=== PATIENT | male | born 1995 | race African-American/Black ===

== ENCOUNTER 2024-07-13 13:57 | Emergency (ER) | payer SELFPAY ==
[2024-07-13 13:58] VITALS: BP 133/82; PULSE 93; RESP 15; TEMP 36.1; O2SAT 100; BMI 20.7
--- NOTE | 2024-07-13 14:12 | EDS_ITS ---
HPI History of Present Illness HPI Narrative: Patient presents with right shoulder neck pain that has been constant for the past 3 days. Patient states she woke up 2 days ago with pain in his right shoulder and neck. Patient states that has been constant. Patient describes it as sharp. Patient states it is better when he is able to put pressure over his shoulder and neck area. Patient states nothing makes it worse. Patient admits to some tingling going down his right arm into his 3rd and 4th fingers. Patient denies any weakness. Chief Complaint: Upper Extremity Injury Informant: patient Onset/Context/Timing Onset: Days (3) Context: Sudden Onset Timing: Continuous Quality of Pain: Sharp Location: Right shoulder and neck Worsened by: Nothing Relieved by: Applying pressure Associated Symptoms Associated Symptoms: Positive for Parasthesia; Negative for Weakness or Loss of Funtion PFSH PFSH Medical History no medical history no medical history Home Medications ?Medication ?Instructions ?Recorded ?Last Taken ?Type naproxen 500 mg tablet (Naprosyn) 500 mg PO BID PRN pa in #20 tabs 07/13/24 Unknown Rx Allergy/AdvReac Type Severity Reaction Status Date / Time No Known Allergies Allergy Verified 07/13/24 13:58 Surgical History no surgical history no surgical history Social History Smoking Status: Current every day smoker tobacco type: cigarettes ROS ROS ED Constitutional Constitutional ED: Denies chills or fever(s) Eyes Eyes: Denies blurry vision or change in vision ENT ENT ED: Denies rhinorrhea or sore throat Cardiovascular Cardiovascular: Denies chest pain or palpitations Respiratory/Chest Respiratory/Chest: Reports cough; Denies dyspnea Gastrointestinal Gastrointestinal: Denies nausea or vomiting Genitourinary Genitourinary ED: Denies dysuria or hematuria Musculoskeletal Musculoskeletal: Reports neck pain; Denies back pain Integumentary Denies abscess or rash Neurologic Neurologic: Denies headache(s) or weakness Allergic/Immunologic Allergic/Immunologic ED: Denies mouth swelling or urticaria EXAM Physical Exam Const Vital Signs: 07/13/24 13:58 Temperature 96.9 F L Temperature Source Temporal Pulse Rate 93 Respiratory Rate 15 Blood Pressure 133/82 H Blood Pressure Mean 99 Pulse Ox 100 Oxygen Delivery Method Room Air Positive well nourished and well developed General Appearance ED: well developed and NAD HEENT Reports moist mucous membranes normocephalic and atraumatic Neck Neck Narrative: There is tenderness and mild spasm of the right cervical paraspinal muscles. There is no midline tenderness. Is no bony crepitance or step-off. Range of motion is limited in all motions of the cervical spine secondary to pain. General: tenderness Extremity normal to inspection Extremity Narrative: There is mild tenderness over the posterior aspect of the right shoulder and parascapular muscles. There is no bony crepitance or step-off. There is no deformity noted. Range of motion was slightly limited in all motions of the right shoulder secondary to pain. Radial pulses are equal bilaterally. Strength 5/5 bilaterally in the upper extremities. Sensation was intact to light touch in the radial, median, and ulnar areas. Neuro oriented x3, CN's II-XII intact bilaterally, moves all extremities, no focal motor deficits and no sensory deficits noted Sensorium / Orientation: alert Motor Exam: strength 5/5 throughout Psych mental status grossly normal MDM MDM MDM Narrative Medical decision making narrative: Differential diagnosis includes cervical radiculopathy, shoulder strain, cervical strain, and occult fracture. CT scan of the cervical spine will be obtained to assess for cervical disc disease and occult fracture. Radiography Diagnostic Testing: CT scan of the cervical spine was obtained. There is no acute process noted. There is no spondylolisthesis. The disc spaces are maintained. This was interpreted by the radiologist and was also independently reviewed by myself. Treatment and Re-Evaluation Narrative: Patient was given a dose of [place] here. Patient was advised of his findings. Patient was given a prescription for Naprosyn. Patient was instructed to follow-up with his primary care physician in 5 to 7 days. Patient states a dvised that there still could be a cervical radiculopathy and he may need further testing for this. Patient was instructed to return if worse in any way. Patient understood and was agreeable with the plan. All questions were answered. Discharge Plan Triage Chief Complaint: Upper Extremity Injury ED Provider: Etienne Landin Dx/Rx/DC Orders Clinical Impression: Pain of right shoulder region, Radiculopathy affecting upper extremity Prescriptions: New naproxen [Naprosyn] 500 mg tablet 500 mg PO BID PRN (Reason: pain) Qty: 20 0RF Primary Care Provider: Care Physician,No Primary Referrals: Yamilex De Oliveira MD [Med Staff - Clinical Laboratory Service Teacher] - 5-7 Days Care Physician,No Primary [Primary Care Provider] - Print Language: Kiswahili Disposition Disposition: Home, Self Care
--- NOTE | 2024-07-13 14:56 | CT_ITS ---
PROCEDURE: SPINE CERVICAL WITHOUT CONTRAS 07/13/2024 REASON FOR EXAM: Right shoulder/neck pain. No injury. No history of surgery. TECHNIQUE: Cervical spine CT without contrast. Coronal and Sagittal reconstruction series were provided. One or more dose reduction techniques were used (e.g., Automated exposure control, adjustment of the mA and/or kV according to patient size, use of iterative reconstruction technique. RADIATION DOSE SUMMARY: CTDlvol: 20 mGy DLP: 430 mGycm COMPARISON: None. FINDINGS: Alignment: There is straightening of the normal cervical lordosis. No traumatic listhesis. Vertebrae: No acute osseous fracture. The vertebral body heights and intervertebral disc spaces are maintained. Soft Tissues: No prevertebral or subcutaneous hematoma. Tiny right apical blebs. CT/Spine Cervical without Contras IMPRESSION: NO ACUTE CERVICAL FRACTURE Reading Location: [id number]
[2024-07-13] MEDS: HYDROcodone Bitartrate/Apap 5/325 Tablet PO (15:31)
[2024-07-13 16:02] VITALS: BP 128/84; PULSE 79; RESP 16; TEMP 36.2; O2SAT 99
== END 2024-07-13 16:02 | disposition home or self-care (01) ==
PROVIDERS: Emergency Provider Emergency Medicine; Visit Provider Emergency Medicine
DX: M25.511 Pain in right shoulder (principal); M54.12 Radiculopathy, cervical region; F17.210 Nicotine dependence, cigarettes, uncomplicated
CPT/HCPCS: 72125; 99282

== ENCOUNTER 2024-07-20 15:09 | Emergency (ER) | payer MEDICAID, SELFPAY ==
[2024-07-20 15:10] VITALS: BP 144/85; PULSE 88; RESP 16; TEMP 36.7; O2SAT 99; BMI 20.3
--- NOTE | 2024-07-20 15:18 | EDS_ITS ---
HPI History of Present Illness Chief Complaint: Upper Extremity Injury Narrative Narrative: Chief complaint and HPI: Right upper extremity pain. History taken by patient as well as medical record. 28-year-old male with no significant past medical history presents for evaluation of right upper extremity pain. Patient was seen in our emergency department on 07/13 for same complaint. Patient states approximately 1 week ago he woke up with pain in the distribution of his right upper trapezius. He states that the pain radiates down his arm. Describes it as sharp. States he does not remember any significant injury or trauma although states that he does lift heavy things for work. Pain is constant. Has been using Tylenol and Naprosyn. Pain is better when he applies pressure to the area. Denies any fever or chills. 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 Patient was seen in our emergency department for this complaint on 07/13. He had a CT scan of the cervical spine. This showed no acute abnormality. He was discharged home on Naprosyn and told to follow-up with PCP. Pain has not resolved which is why patient presents today. Has not followed up with anyone. Patient states Review of systems: See HPI Medications: As listed on the chart Allergies: As listed on the chart PFSH: Per chart Vital signs: As listed on the chart. Reviewed. Physical exam: Gen: A&O x3, NAD Head: Normocephalic, atraumatic Eyes: No sclera icterus, conjunctiva clear, PERRL, EOMI ENT: Moist mucous membrane Neck: Trachea midline, No JVD, Nontender, full range of motion CV: Regular rate Resp: Nonlabored respirations Musc: Full range of motion of the bilateral upper extremities and neck, patient has tenderness to palpation over the right shoulder in the upper trapezius distribution as well as the parascapular muscles-this recreates his pain, no midline spinal tenderness, no bony step-off, no signs of trauma or infection, no crepitus, strength +5/5 in both upper extremities except for mildly decreased in the 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, radial pulses +2 bilaterally, good capillary refill, sensation intact Skin: Warm, dry, intact Neuro: Alert, oriented, grossly intact Psych: Cooperative, appropriate mood and affect [facility] Medical History (Updated 07/21/24 @ 00:00 by Background Daemon) Shoulder pain Home Medications ?Medication ?Instructions ?Recorded ?Last Taken ?Type naproxen 500 mg tablet (Naprosyn) 500 mg PO BID PRN pa in #20 tabs 07/13/24 Unknown Rx cyclobenzaprine 5 mg tablet 5 mg PO TID PRN muscle spa sm 3 07/20/24 Unknown Rx days #9 tabs Allergy/AdvReac Type Severity Reaction Status Date / Time No Known Allergies Allergy Verified 07/13/24 13:58 Social History Smoking Status: Current every day smoker tobacco type: cigarettes EXAM Physical Exam Const Vital Signs: 07/20/24 15:10 Temperature 98.1 F Temperature Source Oral Pulse Rate 88 Respiratory Rate 16 Blood Pressure 144/85 H Blood Pressure Mean 104 Pulse Ox 99 Oxygen Delivery Method Room Air MDM MDM MDM Narrative Medical decision making narrative: 28-year-old male with no significant past medical history presents for evaluation of right upper extremity pain. Patient was seen in our emergency department for same complaint on 07/13. Had a CT cervical spine that was u nremarkable and discharged home on Naprosyn. Patient is not followed up with anybody. Continues to have pain. Differential diagnosis includes but is not limited to myofascial spasm, shoulder strain, cervical radiculopathy, cervical strain. Patient denies any trauma or injury given that he just had a CT of the cervical spine I do not think any further imaging is needed. Patient has no need for emergent MRI. Patient's pain will be treated with IM Toradol and Valium. Patient will be reassessed. On reevaluation, patient states his pain has significantly improved. Patient is stable to discharge home. Recommended rest and heat as needed. Tylenol and Naprosyn. Patient will be prescribed Flexeril. Follow-up with orthopedic physician. Return precautions explained. He confirmed understand the plan. Impression: 1. Right upper extremity pain Discharge Plan Triage Chief Complaint: Upper Extremity Injury ED Provider: Rocky Douglas Dx/Rx/DC Orders Clinical Impression: Pain of right shoulder region Instructions: ED RICE Prescriptions: New cyclobenzaprine 5 mg tablet 5 mg PO TID PRN (Reason: muscle spasm) 3 Days Qty: 9 0RF No Action naproxen [Naprosyn] 500 mg tablet 500 mg PO BID PRN (Reason: pain) Qty: 20 0RF Primary Care Provider: Care Physician,No Primary Referrals: Norris Robbisn DO [Med Staff - Active Staff] - 3-5 Days Activity Restrictions/Additional Instructions: Continue your Naprosyn and Tylenol. Recommend taking the muscle relaxers as needed. Do not operate heavy machinery or drive while taking these. They can make you tired, confused, increased falls. Follow-up with orthopedic physician. Return back to the ED if symptoms change or worsen. Print Language: Syriac Disposition Disposition: Home, Self Care Discharge Date/Time: 07/20/24 16:24
[2024-07-20] MEDS: diazePAM 5 MG Tablet PO (15:33)
[2024-07-20] MEDS: Ketorolac 30 MG/ML Syringe IM (15:34)
== END 2024-07-20 16:24 | disposition home or self-care (01) ==
PROVIDERS: Emergency Provider Surgery; Referring Provider Surgery; Visit Provider Surgery
DX: M25.511 Pain in right shoulder (principal); F17.210 Nicotine dependence, cigarettes, uncomplicated
CPT/HCPCS: 96372; 99282